=== PATIENT | female | born 1955 | race Two or more races ===

== ENCOUNTER 2022-08-13 06:57 | Day surgery (SDC) | payer OTHER ==
[~2022-08-13] VITALS: Ht 160 cm; Wt 60.8 kg
[~2022-08-13 06:57] MED LIST: B COMPLEX1 EACH PO; D3 + K2 DOTS 11 EACH PO; MAGNESIUM200 MG PO; SYNTHROID75 MCG PO; TENORMIN25 MG PO; VITAMIN C100 MG PO
[2022-08-13] MEDS ORDERED: POLY119PG PO (14:47)
[2022-08-13] MEDS ORDERED: NEURONTIN300 MG PO (14:47)
[2022-08-13] MEDS ORDERED: IBU800 MG PO (14:49)
== END 2022-08-13 18:30 | disposition home or self-care (01) ==
LOC: CIR.AMB 06:57
PROVIDERS: ATTEND Surgery
DX: K40.90 Unilateral inguinal hernia, without obstruction or gangrene, not specified as recurrent (principal); Z20.822 Contact with and (suspected) exposure to COVID-19; I95.9 Hypotension, unspecified; I10 Essential (primary) hypertension; E03.9 Hypothyroidism, unspecified; E16.2 Hypoglycemia, unspecified
CPT/HCPCS: 49650; C1781